=== PATIENT | male | born 1985 | race Caucasian/White ===

== ENCOUNTER 2016-07-31 04:49 | Emergency (ER) | payer SELFPAY ==
[2016-07-31 04:55] VITALS: BP 99/68; BMI 25.0
[2016-07-31] MEDS ORDERED: ZOFRAN INJ 4 MG VIAL IVP ONE (05:33)
[2016-07-31] MEDS ORDERED: NS 1000 ML 1,000 ML IV ONE (05:33)
[2016-07-31] MEDS ORDERED: NS 1000 ML 1,000 ML ONE (05:33)
--- NOTE | 2016-07-31 05:33 | DR.GENAD ---
HPI - PCP Primary Care Physician: nfd - HPI Comment HPI Comment: PATIENT SAID HE ATE FROZEN PIZZA BEFOR SYMTOMS STRATED. NO FEVER. - Complaint/Symptoms Chief Complaint Doctors Comments: NAUSEA, VOMITING AND DIARRHEA TIMES 2 DAYS. Chief Complaint:: pt states" i ate a frozen pizza wednesday evening about 6 pm then my stomach started cramping around 11 pm and it hasn't stopped since" also c/o n/v/d - Nurses notes reviewed Nurses Notes Review: Yes - Source History Provided: Patient - Mode of Arrival Mode of Arrival: Ambulatory - Timing Onset of Chief Complaint: 07/29/16 Came on: Suddenly - Duration Duration: Constant Duration: Days - Severity Severity: Moderate PMH - PMH Past Medical History: No Past Surgical History: Yes Surgical History: Tonsillectomy - Family History History of Family Medical Conditions: No - Social History Alcohol Use: None Do you use any recreational Drugs:: No Lives With: Family Lives Where: Home - infectious screening In the last 2 months have you had wt loss of >10#?: NO Have you had fever, night sweats or hemotysis?: No Have you traveled outside the country in the last 6 months?: No Isolation: Standard ROS - Review of Systems Constitutional: Weakness, Fatigue. negative: Chills, Fever Eyes: No Symptoms Reported. negative: Eye Pain, Discharge ENTM: No Symptoms Reported. negative: Ear Pain, Nose Discharge, Nose Congestion , Throat Pain Respiratoy: No Symptoms Reported. negative: Productive Cough, Non-Productive Cough, Short of Breath, Wheezing, Hemoptysis Cardiovascular: No Symptoms Reported. negative: Chest Pain, Edema, Palpitations , Syncope Gastrointestinal/Abdominal: Abdominal Pain, Diarrhea, Nausea, Vomiting. negative: Constipation Genitourinary: No Symptoms Reported. negative: Dysuria, Frequency, Hematuria Neurological: Weakness. negative: Headache, Dizziness Musculoskeletal: Muscle Pain Integumentary: No Symptoms Reported Hematologic/Lymphatic: No Symptoms Reported Endocrine: No Symptoms Reported All Other Systems: Reviewed and Negative PE - Vital Signs Vitals: Temperature 97.9 F Pulse Rate 74 Respiratory Rate 18 Blood Pressure 99/68 O2 Sat by Pulse Oximetry 98 - General Limitations: No Limitations General Appearance: Alert - Head Head Exam: Normal Inspection - Eyes Eye exam: Normal Appearance - ENT ENT Exam: Normal External Ear Exam External Ear Exam: Normal External Inspection TM/Canal Exam: Bilateral Normal Nose Exam: Normal Nose Exam Mouth Exam: Normal Inspection Throat Exam: Normal Inspection - Neck Neck Exam: Trachea Midline - Chest Chest Inspection: Symmetric Chest Wall Rise - Respiratory Respiratory Exam: Normal Lung Sounds Bilat - Cardiovascular Cardiovascular Exam: Regular Rate, Normal Rhythm, Normal Heart Sounds - Abdominal Exam Abdominal Exam: Normal Bowel Sounds, Soft. negative: Tenderness - Extremities Extremities Exam: Normal Inspection - Back Back Exam: Normal Inspection - Neurologic Neurological Exam: Alert, Oriented X3 - Psychiatric Psychiatric Exam: Normal Affect, Normal Mood - Skin Skin Exam: Normal Color MDM - Differential Diagnosis Differential Diagnosis: ABDOMINAL PAIN, GASTROENTERITIS, BOWEL OBST, DIARRHEA, VOMITING Course - Treatment Treatment: SEE ORDERS. - Education/Counseling Education/Counseling: Patient, Education Educated On: Treatment, Diagnosis, Needs for Follow Up ROR - Labs Reviewed Laboratory Results Reviewed?: Yes Result Diagrams: 07/31/16 05:48 07/31/16 05:48 Laboratory: WBC 12.2 X10^3/uL (3.6-10.0) H 07/31/16 05:48 RBC 5.12 X10^6/uL (4.7-6.0) 07/31/16 05:48 Hgb 15.4 g/dL (13.5-18.0) 07/31/16 05:48 Hct 44.8 % (42.0-54.0) 07/31/16 05:48 MCV 87.6 fL (80.0-100.0) 07/31/16 05:48 MCH 30.2 pg (27.0-34.0) 07/31/16 05:48 MCHC 34.5 g/dL (33.0-35.0) 07/31/16 05:48 RDW 14.0 % (11.6-16.5) 07/31/16 05:48 Plt Count 272 X10^3/uL (150.0-450.0) 07/31/16 05:48 MPV 7.7 fL (7.4-11.0) 07/31/16 05:48 Neut % 82.8 % (42.0-75.0) H 07/31/16 05:48 Lymph % 9.7 % (21.0-51.0) L 07/31/16 05:48 [place] % 6.9 % (0.0-13.0) 07/31/16 05:48 Eos % 0.1 % (0.9-2.9) L 07/31/16 05:48 Baso % 0.5 % (0.2-1.0) 07/31/16 05:48 Neut # 10.1 x10^3/uL (2.2-4.8) H 07/31/16 05:48 Lymph # 1.2 X10^3/uL (1.3-2.9) L 07/31/16 05:48 [place] # 0.8 x10^3/uL (0.3-0.8) 07/31/16 05:48 Eos # 0.0 x10^3/uL (0.0-0.2) 07/31/16 05:48 Baso # 0.1 X10^3/uL (0.0-0.1) 07/31/16 05:48 Absolute Nucleated RBC 0.0 /100WBC 07/31/16 05:48 Sodium 139 mmol/L (136-145) 07/31/16 05:48 Corrected Sodium TNP 07/31/16 05:48 Potassium 4.0 mmol/L (3.5-5.1) 07/31/16 05:48 Chloride 105 mmol/L (98-107) 07/31/16 05:48 Carbon Dioxide 22.7 mmol/L (21-32) 07/31/16 05:48 BUN 7 mg/dL (7-18) 07/31/16 05:48 Creatinine 0.86 mg/dL (0.70-1.30) 07/31/16 05:48 Est GFR (MDRD) Af Amer > 60 (>60) 07/31/16 05:48 Est GFR (MDRD) Non-Af > 60 (>60) 07/31/16 05:48 Glucose 101 mg/dL (65-99) H 07/31/16 05:48 Calcium 8.1 mg/dL (8.5-10.1) L 07/31/16 05:48 Corrected Calcium TNP 07/31/16 05:48 Total Bilirubin 0.60 mg/dL (0.2-1.0) 07/31/16 05:48 AST 13 Units/L (15-37) L 07/31/16 05:48 ALT 21 Units/L (12-78) 07/31/16 05:48 Alkaline Phosphatase 83 Units/L (46-116) 07/31/16 05:48 Total Protein 7.4 g/dL (6.4-8.2) 07/31/16 05:48 Albumin 4.0 g/dL (3.4-5.0) 07/31/16 05:48 Globulin 3.4 g/dL (2.5-4.5) 07/31/16 05:48 Albumin/Globulin Ratio 1.2 Ratio (1.1-2.1) 07/31/16 05:48 Streptococcus Screen Negative (NEGATIVE) 07/31/16 06:09 - XRAY XRAY Interpreted by: Radiologist XRAY Findings: REPORT DISCUSS WITH PATIENT. - Diagnosis Discharge Problem: Gastroenteritis Diarrhea Qualifiers: Diarrhea type: unspecified type Qualified Code(s): R19.7 - Diarrhea, unspecified Vomiting Qualifiers: Vomiting type: bilious vomiting Nausea presence: with nausea Qualified Code(s) : R11.14 - Bilious vomiting - Discharge Plan Condition: Stable Prescriptions: Dicyclomine HCl [Bentyl Cap 10 mg] 10 mg PO TID PRN #15 cap PRN Reason: Diphenoxylate/Atropine [Lomotil] 1 tab PO TID #21 tab Ondansetron HCl [Zofran Tab 4 mg] 4 mg PO Q8H PRN #12 tab PRN Reason: Nausea/Vomiting - Follow ups/Referrals Follow ups/Referrals: NFD,None [Primary Care Provider] - 3 days - Instructions Instructions: Viral Gastroenteritis, Adult, [id number], Abdominal Pain, Adult , [id number] Additional Instructions: RETURN TO ED IF WORSE.
[2016-07-31] MEDS ORDERED: ZOFRAN INJ 4 MG VIAL ONE (05:34)
[2016-07-31 05:56] LABS: BASOPHILS # (AUTO) 0.1 X10^3/uL (0.0-0.1); BASOPHILS % (AUTO) 0.5 % (0.2-1.0); EOSINOPHILS % (AUTO) 0.1 % (0.9-2.9); HEMATOCRIT 44.8 % (42.0-54.0); HEMOGLOBIN 15.4 g/dL (13.5-18.0); LYMPHOCYTES # (AUTO) 1.2 X10^3/uL (1.3-2.9); LYMPHOCYTES % (AUTO) 9.7 % (21.0-51.0); MEAN CORPUSCULAR HEMOGLOBIN 30.2 pg (27.0-34.0); MEAN CORPUSCULAR HGB CONC 34.5 g/dL (33.0-35.0); MEAN CORPUSCULAR VOLUME 87.6 fL (80.0-100.0); MEAN PLATELET VOLUME 7.7 fL (7.4-11.0); MONOCYTES # (AUTO) 0.8 x10^3/uL (0.3-0.8); MONOCYTES % (AUTO) 6.9 % (0.0-13.0); NEUTROPHILS # (AUTO) 10.1 x10^3/uL (2.2-4.8); NEUTROPHILS % (AUTO) 82.8 % (42.0-75.0); PLATELET COUNT 272 X10^3/uL (150.0-450.0); RED BLOOD COUNT 5.12 X10^6/uL (4.7-6.0); WHITE BLOOD COUNT 12.2 X10^3/uL (3.6-10.0)
[2016-07-31 06:09] LABS: ALANINE AMINOTRANSFERASE 21 Units/L (12-78); ALKALINE PHOSPHATASE 83 Units/L (46-116); ASPARTATE AMINO TRANSFERASE 13 Units/L (15-37); BLOOD UREA NITROGEN 7 mg/dL (7-18); CALCIUM 8.1 mg/dL (8.5-10.1); CARBON DIOXIDE 22.7 mmol/L (21-32); CHLORIDE 105 mmol/L (98-107); CREATININE 0.86 mg/dL (0.70-1.30); GLUCOSE 101 mg/dL (65-99); SODIUM 139 mmol/L (136-145); TOTAL PROTEIN 7.4 g/dL (6.4-8.2); eGFR BLACK RACES > 60 (>60); eGFR NON BLACK RACES > 60 (>60)
--- NOTE | 2016-07-31 06:33 | RAD ---
HISTORY: Abdominal pain since yesterday. Nausea/vomiting/diarrhea. Study: Acute abdominal series Comparison: No priors Findings: The trachea is midline. The cardiac silhouette is unremarkable. The lungs are clear without focal infiltrate or effusion. The bony thorax is unremarkable. Flat plate and upright evaluation of the abdomen demonstrates a normal bowel gas pattern. No pathol ogical soft tissue mass or calcification can be observed. The bony structures are grossly intact. IMPRESSION: 1. No acute cardiopulmonary disease. 2. No evidence for acute abdominal pathology identified. Reported By:
== END 2016-07-31 06:59 | disposition home or self-care (01) ==
LOC: ER 04:49
DX: K52.89 Other specified noninfective gastroenteritis and colitis (principal); R10.9 Unspecified abdominal pain
CPT/HCPCS: 36415; 74022; 80053; 85025; 87070; 87880; 96365; 96374; 99282; 99283; A4222; J2405

== ENCOUNTER 2016-11-01 12:23 | Emergency (ER) | payer SELFPAY ==
[2016-11-01 12:37] VITALS: BP 153/83; BMI 25.0
[2016-11-01] MEDS ORDERED: ADACEL TDaP IM ONE ×2 (12:38→12:39)
[2016-11-01] MEDS ORDERED: XYLOCAINE 1 % (PLAIN) ONE (12:43)
--- NOTE | 2016-11-01 12:55 | DR.GENAD ---
HPI - PCP Primary Care Physician: NFD - HPI Comment HPI Comment: TD NOT UTD. - Complaint/Symptoms Chief Complaint Doctors Comments: LACERATION RIGHT HAND BASE THUMB. CUT WITH RAZOR BLADE AT WORK. Chief Complaint:: PT WAS INJURED AT WORK WITH A RAZOR WHILE CUTTING A GLOVE AND HIS FINGER MUST HAVE SLIPPED .. Self Treatment fo Chief Complaint: PT HAS A LACERATION TO HIS RIGHT WEB BETWEEN THUMB AND FIRST FINGER..... BLEEDING CONTROLLED .. PT'S HAND CLEANED WITH IODINE . - Nurses notes reviewed Nurses Notes Review: Yes - Source History Provided: Patient - Mode of Arrival Mode of Arrival: Ambulatory - Timing Onset of Chief Complaint: 11/01/16 Came on: Suddenly - Duration Duration: Constant Duration: Hours - Severity Severity: Moderate PMH - PMH Past Medical History: No Past Surgical History: Yes Surgical History: Tonsillectomy - Family History History of Family Medical Conditions: Yes Family Medical History Comment: BOTH PARENTS .. - Social History Does patient currently use any type of tobacco product: Yes Have you used tobacco products in the last 12 months: Yes Type of Tobacco Use: Cigarettes How many years tobacco product used: 10 Does any household member use tobacco: No Alcohol Use: None Do you use any recreational Drugs:: No Lives With: Family Lives Where: Home - infectious screening In the last 2 months have you had wt loss of >10#?: NO Have you had fever, night sweats or hemotysis?: No Have you traveled outside the country in the last 6 months?: No Isolation: Standard ROS - Review of Systems Constitutional: No Symptoms Reported Eyes: No Symptoms Reported ENTM: No Symptoms Reported Respiratoy: No Symptoms Reported Cardiovascular: No Symptoms Reported Gastrointestinal/Abdominal: No Symptoms Reported Genitourinary: No Symptoms Reported Neurological: No Symptoms Reported Musculoskeletal: Right, Hand Integumentary: Wound (LAC 3CM BASE INNER RT THUMB.) Hematologic/Lymphatic: No Symptoms Reported Endocrine: No Symptoms Reported All Other Systems: Reviewed and Negative PE - Vital Signs Vitals: Temperature 97.2 F Pulse Rate 75 Respiratory Rate 18 Blood Pressure 153/83 O2 Sat by Pulse Oximetry 100 - General Limitations: No Limitations General Appearance: Alert - Head Head Exam: Normal Inspection - Eyes Eye exam: Normal Appearance - ENT ENT Exam: Normal External Ear Exam Throat Exam: Normal Inspection - Neck Neck Exam: Trachea Midline - Chest Chest Inspection: Symmetric Chest Wall Rise - Respiratory Respiratory Exam: Normal Lung Sounds Bilat Respiratory Exam: Bilateral Clear to Auscultation - Cardiovascular Cardiovascular Exam: Regular Rate, Normal Rhythm, Normal Heart Sounds - Abdominal Exam Abdominal Exam: Normal Inspection - Extremities Extremities Exam: Tenderness (LAC 3CM BASE RT THUMB.) - Neurologic Neurological Exam: Alert, Oriented X3 - Psychiatric Psychiatric Exam: Normal Affect, Normal Mood - Skin Skin Exam: Erythema MDM - Differential Diagnosis Differential Diagnosis: LACERATION RT HAND. Course - Treatment Treatment: SEE ORDERS. LAC CLOSE IN ED. - Education/Counseling Education/Counseling: Patient, Education Educated On: Diagnosis, Needs for Follow Up Procedures - Laceration/Wound Repair Right Hand Wound Length (cm): 3 Wound's Depth, Shape: Linear Wound Explored: clean Anesthesia: 1% Lidocaine Volume Anesthetic (ccs): 3 Wound Debrided: minimal Wound Repaired With: sutures Suture Size/Type: 4:0, [place] Number of Sutures: 4 Layer Closure?: No Sterile Dressing Applied?: Yes Splint Applied?: No Sling Applied?: No - Diagnosis Discharge Problem: Laceration of right hand Qualifiers: Encounter type: initial encounter Foreign body presence: without foreign body Qualified Code(s): S61.411A - Laceration without foreign body of right hand, initial encounter - Discharge Plan Disposition: 01 HOME, SELF-CARE Condition: Stable Prescriptions: Ibuprofen [MOTRIN TAB 600 MG *] 600 mg PO TID PRN #20 tab PRN Reason: Pain/Inflammation - Follow ups/Referrals Follow ups/Referrals: NFD,None [Primary Care Provider] - 2 days - Instructions Instructions: Laceration Care, Adult, [id number] Additional Instructions: RETURN TO ED IF WORSE. SUTURE OUT IN 10 DAYS. LIGHT DUTY TILL EVALUATED BY FOLLOW UP
[2016-11-01] MEDS ORDERED: BACITRACIN ZINC ONE (13:20)
== END 2016-11-01 13:40 | disposition home or self-care (01) ==
LOC: ER 12:23
PROC: 0XQJ0ZZ Repair Right Hand, Open Approach (ICD-10-PCS; principal; 2016-11-01)
DX: S61.411A Laceration without foreign body of right hand, initial encounter (principal); W45.8XXA Other foreign body or object entering through skin, initial encounter; Y92.69 Other specified industrial and construction area as the place of occurrence of the external cause
CPT/HCPCS: 12002; 80305; 90471; 99282; J2001